=== PATIENT | female | born 1990 | race African-American/Black ===

== ENCOUNTER 2017-10-27 06:55 | Emergency (ER) | payer OTHER ==
[2017-10-27 06:57] VITALS: TEMP 97.6; BMI 29.5
[2017-10-27] MEDS ORDERED: ACETAMINOPHEN 500 MG TABLET (FP) PO ONE (07:26)
[2017-10-27] MEDS ORDERED: ACETAMINOPHEN 1000 MG/100 ML VIAL (NON FORMULARY) IVPB ONE (07:34)
[2017-10-27] MEDS ORDERED: ACETAMINOPHEN INJECTION 100 ML IVPB ONE (07:35)
[2017-10-27] MEDS ORDERED: LACTATED RINGERS SOLUTION 1000 ML INFUS.BAG IV ONE (07:35)
--- NOTE | 2017-10-27 08:11 | PDOC ---
History of Present Illness - General Chief Complaint: Vaginal Bleeding Stated Complaint: VAGINAL BLEEDING Time Seen by Provider: 10/27/17 08:09 - History of Present Illness Initial Comments: 27 year old previously healthy female with chemically confirmed and LMP of 09/22/17 presenting with vaginal bleeding for the past 12 hours. States that she noticed some light pink spotting last night during work and then woke up this AM with heavier bleeding. She states that her bleeding overall at this point is much heavier than her usually periods and is thick blood but denies clots or tissue passage. Also admits to some new nausea, NBNB vomiting x1, NB diarrhea, mild-moderate crampy pelvic pain, and some chills. Denies chest pain, SOB, cough, fevers, lightheadedness, syncope, or other sick symptoms. She did get her flu shot yesterday as well. Her ObyGyn (Dr. Gabriel) at the [facility] who she saw two days prior and was given vitamins. 10/27/17 08:20 Past History - Past Medical History Allergies/Adverse Reactions: Allergies Allergy/AdvReac Type Severity Reaction Status Date / Time No Known Allergies Allergy Verified 10/27/17 06:56 Home Medications: Ambulatory Orders NK [No Known Home Medication] 10/27/17 COPD: No - Reproductive History Is Patient Now?: Yes (#): 1 - Suicide/Smoking/Psychosocial Hx Smoking History: Never smoked Have you smoked in the past 12 months: No Information on smoking cessation initiated: No Hx Alcohol Use: No Drug/Substance Use Hx: No Substance Use Type: None Review of Systems - Review of Systems Constitutional: Yes: Chills. No: Fever HEENTM: No: Blurred Vision Respiratory: No: Cough, Shortness of Breath Cardiac (ROS): No: Chest Pain, Irregular Heart Rate ABD/GI: Yes: Diarrhea. No: Nausea, Vomiting : No: Burning, Dysuria, Discharge Musculoskeletal: No: Back Pain, Joint Pain, Joint Swelling Integumentary: No: Bruising, Change in Color, Change in Hair/Nails Neurological: No: Headache, Numbness Hematologic/Lymphatic: No: Blood Clots, Easy Bruising *Physical Exam - Vital Signs Last Vital Signs Temp Pulse Resp BP Pulse Ox 97.6 F 58 L 20 125/85 98 10/27/17 06:56 02/01/18 06:56 10/27/17 06:56 10/27/17 06:56 10/27/17 06:56 - Physical Exam General Appearance: Yes: Nourished, Appropriately Dressed. No: Apparent Distress HEENT: positive: EOMI, ARTURO, Normal ENT Inspection, Normal Voice Neck: positive: Trachea midline, Normal Thyroid, Supple. negative: Tender, Rigid Respiratory/Chest: positive: Lungs Clear, Normal Breath Sounds. negative: Chest Tender, Respiratory Distress Cardiovascular: positive: Regular Rhythm, Regular Rate Female Pelvic Exam: positive: normal external exam, cervical os closed, normal adnexa, other (Blood withut tissue in the vaginal fault (dark withotu obvious source of bleeding)) Gastrointestinal/Abdominal: positive: Normal Bowel Sounds, Flat, Soft. negative : Tender Musculoskeletal: positive: Normal Inspection. negative: Decreased Range of Motion Extremity: positive: Normal Capillary Refill, Normal Inspection Integumentary: positive: Normal Color, Dry, Warm Neurologic: positive: Fully Oriented, Alert, Normal Mood/Affect, Normal Response , Motor Strength 01/28 ED Treatment Course - LABORATORY CBC & Chemistry Diagram: 10/27/17 07:55 10/27/17 07:55 - Medications Given in the ED: ED Medications Discontinued Medications Generic Name Dose Route Start Last Admin Trade Name Aaron PRN Reason Stop Dose Admin Acetaminophen 1,000 mg 10/27/17 07:26 10/27/17 08:06 Tylenol - PO 10/27/17 07:27 Not Given ONCE ONE Acetaminophen 1,000 mg 10/27/17 07:34 10/27/17 08:06 Ofirmev Injection - IVPB 10/27/17 07:35 1,000 mg ONCE ONE Administration Lactated Ringer's 1,000 ml 10/27/17 07:35 10/27/17 08:06 Lactated Ringers Solution IV 10/27/17 07:36 1,000 ml ONCE ONE Administration Medical Decision Making - Medical Decision Making BhCG, TVUS, and vaginal exam lead to firm conclusion of complete miscarriage/ . Spoke to the covering physician at [facility] to discuss a follow up exam and they could schedule her for next week once she calls. Dr. Gabriel was unfortunately not available to speak. The patient is O + and the rest of her labs are WNL. Will discharge patient with instructions to follow up with her critical access hospital clinic. 10/27/17 11:37 *DC/Admit/Observation/Transfer Diagnosis at time of Disposition: Complete - Discharge Dispostion Disposition: HOME Condition at time of disposition: Stable Admit: No - Referrals - Patient Instructions Printed Discharge Instructions: DI for Miscarriage Additional Instructions: Our ultrasound, laboratory tests, and exam show that you have unfortunately had a complete . The cause of this is unknown but you can get further workup from your critical access hospital site where you receive your obygyn care. You will bleed for a little bit longer but it should eventually slow down. Please return to the ED for extreme uncontrollable bleeding, pain that can't be controlled with Tylenol/ Motrin, or fevers/chills. - Post Discharge Activity
[2017-10-27 08:27] LABS: BASO % 0.8 % (0-2.0); EOS % 3.8 % (0-4.5); HEMATOCRIT 38.8 % (32.4-45.2); HEMOGLOBIN 12.7 GM/dL (10.7-15.3); LYMPH % 32.7 % (8-40); MCH 32.3 pg (25.7-33.7); MCHC 32.7 g/dl (32.0-36.0); MEAN PLT VOLUME 10.2 fl (7.5-11.1); MONO % 9.7 % (3.8-10.2); PLATELET COUNT 228 K/MM3 (134-434); RBC 3.92 M/mm3 (3.60-5.2); RDW 13.4 % (11.6-15.6); WHITE BLOOD COUNT 5.9 K/mm3 (4.0-10.0)
--- NOTE | 2017-10-27 08:35 | PDOC ---
Attending Attestation - HPI HPI: 10/27/17 11:00 The patient is a 27 year old female, with no significant past medical history A0 who presents to the emergency department with vaginal bleeding for the past 12 hours. The patient notes having a confirmed (LMP 09/22/17). The patient reports while at work having some light pink spotting, which progressively worsened throughout the day, waking up this morning with heavy bleeding. Reports some clot passage. Also note having nausea, one episode NBNB vomiting, NB diarrhea, crampy pelvic pain, and chills. She denies recent fevers, , headache or dizziness. She denies recent dysuria, frequency, urgency or hematuria. She denies recent chest pain or shortness of breath. She notes getting her flu shot yesterday. Pt saw her Ob Dr. Gabriel 2 days ago. Allergies: NKA Past surgical history: None reported. Social history: Nonsmoker. Denies EtOH use and recreational drug use. OBGYN: - Physicial Exam PE: 10/27/17 11:00 In agreement with resident PE. - Medical Decision Making 10/27/17 11:00 Documentation prepared by Vinicio Velázquez, acting as medical office clerk for Naldo Morris MD. <Vinicio Velázquez - Last Filed: 10/27/17 11:00> - Resident Resident Name: Karina Nath - ED Attending Attestation I have performed the following: I have examined & evaluated the patient, The case was reviewed & discussed with the resident, I agree w/resident's findings & plan, Exceptions are as noted - Medical Decision Making 10/27/17 11:22 27-year-old female presents with vaginal bleeding since last night. Patient reports she is 4-6 weeks . Also has abdominal cramping. Vitals unremarkable. Labs thus far unremarkable, type and screen is oh positive. Ultrasound with no intrauterine but some pelvic fluid. Quantitative hCG is less than 5 consistent with spontaneous first trimester . [place] discuss management with the patient's OB Dr. bloom and reassess the patient. <Naldo Morris - Last Filed: 10/27/17 11:25>
[2017-10-27 08:52] LABS: ALBUMIN 3.6 g/dl (3.4-5.0); ANION GAP 7 (8-16); BILIRUBIN,TOTAL 0.6 mg/dL (0.2-1.0); BLOOD UREA NITROGEN 14 mg/dL (7-18); CALCIUM 8.4 mg/dL (8.5-10.1); CHLORIDE 106 mmol/L (98-107); CO2 27 mmol/L (21-32); CREATININE 0.8 mg/dL (0.55-1.02); GLUCOSE,RANDOM 87 mg/dL (74-106); POTASSIUM 4.2 mmol/L (3.5-5.1); SGOT/AST 8 U/L (15-37); SGPT/ALT 19 U/L (12-78); SODIUM 140 mmol/L (136-145); TOT PROT 7.1 g/dl (6.4-8.2)
[2017-10-27 08:55] LABS: ALK PHOS 80 U/L (45-117)
[2017-10-27 08:55] LABS: INR 1.07 (0.82-1.09); PROTHROMBIN TIME (PATIENT) 12.1 SEC (9.98-11.88)
[2017-10-27 11:55] VITALS: BP 119/75; PULSE 60
== END 2017-10-27 11:59 | disposition home or self-care (01) ==
LOC: JER 06:55
PROC: 3E033NZ Introduction of Analgesics, Hypnotics, Sedatives into Peripheral Vein, Percutaneous Approach (ICD-10-PCS; principal; 2017-10-27)
DX: O26.891 Other specified pregnancy related conditions, first trimester (principal); O03.9 Complete or unspecified spontaneous abortion without complication; Z3A.01 Less than 8 weeks gestation of pregnancy
CPT/HCPCS: 36415; 76817-TC; 80053; 84702; 85025; 85610; 85730; 86850; 86900; 86901; 99283-25